=== PATIENT | female | born 1960 | race Two or more races ===

== ENCOUNTER 2016-09-21 18:46 | Inpatient (IN) | payer OTHER ==
[~2016-09-21] VITALS: Ht 152.4 cm; Wt 50.9 kg
[~2016-09-21 18:46] MED LIST: NONE PER PT
[2016-09-21] MEDS ORDERED: ACETAMINOPHEN 325 MG TABLET PO ONE (19:00)
[2016-09-21] MEDS ORDERED: SODIUM CHLORIDE 0.9% 1,000ML IVBOLUS ONE (19:30)
[2016-09-21] MEDS ORDERED: SODIUM CHLORIDE FLUSH 10ML SYR IVF ONE (19:30)
[2016-09-21 19:31] LABS: ASPARTATE AMINO TRANSFERASE 32 U/L (15-37); BLOOD UREA NITROGEN 11 mg/dL (7-18)
[2016-09-21 20:12] LABS: DIFF TOTAL CELLS COUNTED 100 CELL DIFF
[2016-09-21 20:15] LABS: ANISOCYTOSIS 1+; POIKILOCYTOSIS 1+
[2016-09-21 20:16] LABS: POLYCHROMASIA 1+
[2016-09-21] MEDS ORDERED: PROC10TA PO (20:16)
[2016-09-21] MEDS ORDERED: ONDA4TAB10 PO (20:16)
[2016-09-21 20:17] LABS: VERIFY COUNTS? YES
[2016-09-21] MEDS ORDERED: KETO10TA PO (20:17)
[2016-09-21] MEDS ORDERED: ACETAMINOPHEN 325 MG TABLET ONE (20:18)
[2016-09-21] MEDS ORDERED: VANCOMYCIN PER PHARMACY MC ONE (21:30)
[2016-09-21] MEDS ORDERED: PHARMACOKINETIC CONSULTATION MC ONE ×2 (21:30→23:45)
[2016-09-21] MEDS ORDERED: CEFEPIME 1 GM in DEXTROSE 5% 50 ML IVPB ONE (21:30)
[2016-09-21] MEDS ORDERED: VANCOMYCIN PMX 1GM/200ML 200 ML IV ONE (22:00)
[2016-09-21 22:45] VITALS: BP 108/69
[2016-09-21 23:05] VITALS: BP 108/69
[2016-09-21] MEDS ORDERED: PHARMACOKINETIC MONITORING MC PRN (23:45)
[2016-09-22] MEDS ORDERED: VANCOMYCIN PER PHARMACY MC PRN
[2016-09-22] MEDS ORDERED: HYDROcodone/APAP 5/325 TABLET PO PRN
[2016-09-22] MEDS ORDERED: ACETAMINOPHEN 325 MG TABLET PO PRN
[2016-09-22] MEDS ORDERED: DOCUSATE 100 MG CAPSULE PO PRN
[2016-09-22] MEDS ORDERED: ONDANSETRON ODT 4 MG PO PRN
[2016-09-22] MEDS ORDERED: GUAIFENESIN/DM 200-20MG, 10ML UDC PO PRN
[2016-09-22] MEDS ORDERED: TEMAZEPAM 15 MG CAPSULE PO PRN
[2016-09-22] MEDS: SODIUM CHLORIDE 0.9% 1,000 ML IV SCH ×4 (00:23→23:16)
[2016-09-22] MEDS: ENOXAPARIN 40 MG/0.4 ML SQ SCH ×2 (00:27→23:16)
[2016-09-22] MEDS ORDERED: OMNIPAQUE 350 MG/ML, 100ML BOTTLE ONE (03:27)
[2016-09-22 03:37] VITALS: BP 104/67
[2016-09-22] MEDS: CEFEPIME 2 GM in DEXTROSE 5% 100 ML IV SCH ×3 (05:38→20:04)
[2016-09-22 06:09] LABS: BLOOD UREA NITROGEN 8 mg/dL (7-18)
[2016-09-22 06:52] LABS: DIFF TOTAL CELLS COUNTED 100 CELL DIFF
[2016-09-22 06:55] LABS: ANISOCYTOSIS 1+; VERIFY COUNTS? YES
[2016-09-22 06:56] LABS: POLYCHROMASIA 1+
[2016-09-22 08:50] VITALS: BP 101/61
[2016-09-22 13:13] VITALS: BP 105/67
[2016-09-22] MEDS ORDERED: VANCOMYCIN PMX 1GM/200ML 200 ML IV SCH ×2 (16:00)
[2016-09-22] MEDS: VANCOMYCIN PMX 1GM/200ML 200 ML IV SCH (18:15)
[2016-09-22 19:47] VITALS: BP 114/68
[2016-09-23 02:50] VITALS: BP 104/62
[2016-09-23] MEDS: VANCOMYCIN PMX 1GM/200ML 200 ML IV SCH ×2 (03:25→16:31)
[2016-09-23] MEDS: CEFEPIME 2 GM in DEXTROSE 5% 100 ML IV SCH ×3 (04:51→21:26)
[2016-09-23 05:32] LABS: BLOOD UREA NITROGEN 6 mg/dL (7-18)
[2016-09-23 05:36] LABS: ASPARTATE AMINO TRANSFERASE 24 U/L (15-37)
[2016-09-23 06:45] VITALS: BP 102/63
[2016-09-23] MEDS: SODIUM CHLORIDE 0.9% 1,000 ML IV SCH ×3 (09:47→23:35)
[2016-09-23 13:25] VITALS: BP 101/58
[2016-09-23 19:32] VITALS: BP 124/72
[2016-09-23] MEDS: ENOXAPARIN 40 MG/0.4 ML SQ SCH (23:09)
[2016-09-24 02:40] VITALS: BP 101/62
[2016-09-24] MEDS: VANCOMYCIN 1,300 MG in SODIUM CHLORIDE 0.9% 250 ML IV SCH ×2 (04:28→16:22)
[2016-09-24 04:55] LABS: BLOOD UREA NITROGEN 6 mg/dL (7-18)
[2016-09-24] MEDS: CEFEPIME 2 GM in DEXTROSE 5% 100 ML IV SCH ×3 (06:15→22:06)
[2016-09-24 07:21] VITALS: BP 109/69
[2016-09-24] MEDS: SODIUM CHLORIDE 0.9% 1,000 ML IV SCH ×2 (09:43→22:06)
[2016-09-24 13:57] VITALS: BP 100/65
[2016-09-24 19:01] VITALS: BP 114/70
[2016-09-24] MEDS: ENOXAPARIN 40 MG/0.4 ML SQ SCH (23:50)
[2016-09-25 02:55] VITALS: BP 101/65
[2016-09-25] MEDS: VANCOMYCIN 1,300 MG in SODIUM CHLORIDE 0.9% 250 ML IV SCH (03:57)
[2016-09-25] MEDS: CEFEPIME 2 GM in DEXTROSE 5% 100 ML IV SCH ×2 (05:32→13:38)
[2016-09-25 07:38] VITALS: BP 101/65
[2016-09-25] MEDS: SODIUM CHLORIDE 0.9% 1,000 ML IV SCH (11:56)
[2016-09-25] MEDS ORDERED: DOXY100C2 PO (13:44)
[2016-09-25] MEDS ORDERED: CEFD300C37 PO (13:44)
[2016-09-25] MEDS ORDERED: LACT1CAP24 PO (13:44)
[2016-09-25 13:51] VITALS: BP 111/70
== END 2016-09-25 15:10 | disposition home or self-care (01) | DRG 871 ==
LOC: ED 21:50 → EDIP 22:24 → 3NE 22:40 → 3NW 09-22 07:44
PROVIDERS: ADMIT Family Medicine; ATTEND Internal Medicine
DX: A41.9 Sepsis, unspecified organism (principal); J18.9 Pneumonia, unspecified organism; C25.9 Malignant neoplasm of pancreas, unspecified; R65.20 Severe sepsis without septic shock; T45.1X5A Adverse effect of antineoplastic and immunosuppressive drugs, initial encounter; D69.59 Other secondary thrombocytopenia; R05 Cough; Z85.3 Personal history of malignant neoplasm of breast; Z90.12 Acquired absence of left breast and nipple; Z79.899 Other long term (current) drug therapy
CPT/HCPCS: 36415; 71010; 71275; 80048; 80053; 80202; 81003; 83605; 83735; 84100; 84145; 85025; 85379; 87040; 93005; 96360; J0692; J1650; J3370; Q9967; J7030; J7050

== ENCOUNTER 2017-02-08 23:13 | Emergency (ER) | payer OTHER ==
[~2017-02-08] VITALS: Ht 152.4 cm; Wt 50.4 kg
[~2017-02-08 23:13] MED LIST changes: +CEFD300C37 PO; +DOXY100C2 PO; +KETO10TA PO; +LACT1CAP24 PO; +ONDA4TAB10 PO; +PROC10TA PO
[2017-02-09] MEDS ORDERED: SODIUM CHLORIDE 0.9% 1,000ML IVBOLUS ONE
[2017-02-09] MEDS ORDERED: SODIUM CHLORIDE FLUSH 10ML SYR IVF ONE
[2017-02-09 00:33] LABS: ASPARTATE AMINO TRANSFERASE 16 U/L (15-37); BLOOD UREA NITROGEN 12 mg/dL (7-18)
[2017-02-09 00:45] LABS: HEMOGLOBIN 11.3 g/dL (11.7-16.4); WHITE BLOOD COUNT 5.2 x10^3/uL (3.4-10)
[2017-02-09] MEDS ORDERED: LEVOFLOXACIN 750 MG TABLET ONE (02:23)
[2017-02-09 02:27] VITALS: BP 96/47
[2017-02-09] MEDS ORDERED: LEVOFLOXACIN 750 MG TABLET PO ONE (02:30)
== END 2017-02-09 03:04 | disposition home or self-care (01) ==
LOC: ED 23:36
DX: J15.9 Unspecified bacterial pneumonia (principal); C25.9 Malignant neoplasm of pancreas, unspecified
CPT/HCPCS: 36415; 71010; 80053; 81003; 83605; 84145; 85025; 87040; 96360; 99285; J7030

== ENCOUNTER → 2017-02-21 | Outpatient (CLI) | payer OTHER | END | disposition home or self-care (01) | LOC: RAD 11:42 | PROVIDERS: ATTEND Internal Medicine Hematology & Oncology | DX: R91.8 Other nonspecific abnormal finding of lung field (principal) | CPT/HCPCS: 71020 ==

== ENCOUNTER → 2017-03-04 | Outpatient (CLI) | payer OTHER | END | disposition home or self-care (01) | LOC: RAD 13:40 | PROVIDERS: ATTEND Internal Medicine Hematology & Oncology | DX: J18.9 Pneumonia, unspecified organism (principal); R91.8 Other nonspecific abnormal finding of lung field; C25.3 Malignant neoplasm of pancreatic duct; D70.1 Agranulocytosis secondary to cancer chemotherapy; D69.6 Thrombocytopenia, unspecified; G62.0 Drug-induced polyneuropathy | CPT/HCPCS: 71020 ==